=== PATIENT | male | born 1970 | race Two or more races ===

== ENCOUNTER 2022-12-25 22:14 | Emergency (ER) | payer SELFPAY ==
[~2022-12-25] VITALS: Ht 167.6 cm; Wt 68.1 kg
[2022-12-25 22:40] VITALS: BP 151/85
== END 2022-12-25 23:56 ==
LOC: ER 22:14
DX: Z04.1 Encounter for examination and observation following transport accident (principal); V49.49XA Driver injured in collision with other motor vehicles in traffic accident, initial encounter; Y93.I9 Activity, other involving external motion; Y92.89 Other specified places as the place of occurrence of the external cause; Y99.8 Other external cause status